=== PATIENT | female | born 1955 | race Caucasian/White ===

== ENCOUNTER → 2017-04-14 | Outpatient (CLI) | payer OTHER | LOC: CFH 08:10 | PROVIDERS: ATTEND Internal Medicine Gastroenterology | DX: K70.30 Alcoholic cirrhosis of liver without ascites (principal); K80.20 Calculus of gallbladder without cholecystitis without obstruction | CPT/HCPCS: 76705 ==

== ENCOUNTER → 2017-05-15 | Outpatient (CLI) | payer OTHER | END | disposition home or self-care (01) | LOC: CFH 11:30 | PROVIDERS: ATTEND Family Medicine | DX: Z12.31 Encounter for screening mammogram for malignant neoplasm of breast (principal); M25.512 Pain in left shoulder; M25.511 Pain in right shoulder; M25.562 Pain in left knee | CPT/HCPCS: 77063; 77067 ==

== ENCOUNTER → 2017-05-23 | Outpatient (CLI) | payer OTHER | END | disposition home or self-care (01) | LOC: CFH 06:55 | PROVIDERS: ATTEND Pain Medicine Interventional Pain Medicine | DX: M25.412 Effusion, left shoulder (principal); M75.102 Unspecified rotator cuff tear or rupture of left shoulder, not specified as traumatic; M15.9 Polyosteoarthritis, unspecified | CPT/HCPCS: 77077 ==

== ENCOUNTER 2017-09-26 05:31 | Day surgery (SDC) | payer OTHER ==
[~2017-09-26] VITALS: Ht 152.4 cm; Wt 62.3 kg
[~2017-09-26 05:31] MED LIST: CALC600T4 PO; CHOL2000 PO; LACT10SO28 PO; LACT1CAP35 PO; MULT-717 PO; RIFA550T4 PO
[2017-09-26] MEDS ORDERED: LACTATED RINGERS 1,000 ML IV SCH (06:18)
[2017-09-26] MEDS ORDERED: FENTANYL PF 100 MCG/2ML ONE ×2 (06:30→08:16)
[2017-09-26] MEDS ORDERED: METOPROLOL 1 MG/ML, 5ML ONE (06:30)
[2017-09-26] MEDS ORDERED: MIDAZOLAM 1 MG/ML, 2ML ONE (06:30)
[2017-09-26] MEDS ORDERED: GABAPENTIN 300 MG CAPSULE ONE (06:50)
[2017-09-26] MEDS ORDERED: GABAPENTIN 300 MG CAPSULE PO ONE (07:00)
[2017-09-26] MEDS ORDERED: CEFAZOLIN 1,000 MG ONE (07:24)
[2017-09-26] MEDS ORDERED: ONDANSETRON 2MG/ML, 2ML ONE (07:24)
[2017-09-26] MEDS ORDERED: PROPOFOL 10 MG/ML, 20ML ONE (07:24)
[2017-09-26] MEDS ORDERED: DEXAMETHASONE 4 MG/ML, 1ML ONE (07:24)
[2017-09-26] MEDS ORDERED: KETOROLAC 30 MG/1 ML ONE (07:44)
[2017-09-26] MEDS ORDERED: KETOROLAC 30 MG/1 ML IVPush PRN (08:00)
[2017-09-26] MEDS ORDERED: FENTANYL PF 100 MCG/2ML IV PRN (08:00)
[2017-09-26] MEDS ORDERED: HYDROmorphone 1 MG/ML, 1ML IV PRN (08:00)
[2017-09-26] MEDS ORDERED: OXYcodone 5 MG/5 ML ORAL.SOL UDC PO PRN (08:00)
[2017-09-26] MEDS ORDERED: ONDANSETRON 2MG/ML, 2ML IV PRN (08:00)
[2017-09-26] MEDS ORDERED: OXYcodone 5 MG/5 ML ORAL.SOL UDC ONE (08:16)
[2017-09-26] MEDS ORDERED: RIFAXIMIN 550 MG TABLET PO SCH (09:00)
[2017-09-26] MEDS ORDERED: LACTULOSE 10 GM/15 ML UDC PO SCH (09:00)
== END 2017-09-26 10:10 ==
LOC: OUT 05:31
PROVIDERS: ATTEND Orthopaedic Surgery
DX: S83.232A Complex tear of medial meniscus, current injury, left knee, initial encounter (principal); Z88.5 Allergy status to narcotic agent; Z87.891 Personal history of nicotine dependence; Z98.890 Other specified postprocedural states; Z79.899 Other long term (current) drug therapy; X58.XXXA Exposure to other specified factors, initial encounter; Y93.89 Activity, other specified; Y92.89 Other specified places as the place of occurrence of the external cause; Y99.8 Other external cause status
CPT/HCPCS: 29881; J0690; J1100; J1885; J2250; J2405; J2704; J3010; J7120

== ENCOUNTER 2017-11-02 09:10 | Day surgery (SDC) | payer OTHER ==
[~2017-11-02] VITALS: Ht 152.4 cm; Wt 61.3 kg
[~2017-11-02 09:10] MED LIST changes: +BUPIVACAINE/PF-EPI 0.5% 1:200K ONE; +LIDOCAINE 1%-EPI 1:100K, 30ML ONE
[2017-11-02 09:51] VITALS: BP 127/80
[2017-11-02] MEDS ORDERED: FENTANYL PF 100 MCG/2ML ONE (09:57)
[2017-11-02] MEDS ORDERED: MIDAZOLAM 1 MG/ML, 2ML ONE (09:57)
[2017-11-02] MEDS ORDERED: PLEASE ENTER HEIGHT AND WEIGHT MC SCH (10:00)
[2017-11-02] MEDS ORDERED: ONDANSETRON 2MG/ML, 2ML ONE (10:22)
[2017-11-02] MEDS ORDERED: NEOSTIGMINE 1 MG/ML, 10ML ONE (10:22)
[2017-11-02] MEDS ORDERED: GLYCOPYRROLATE 0.2MG/1ML, 5ML ONE (10:22)
[2017-11-02] MEDS ORDERED: CEFAZOLIN 1,000 MG ONE (10:51)
[2017-11-02] MEDS ORDERED: DEXAMETHASONE 4 MG/ML, 1ML ONE ×2 (10:51)
[2017-11-02] MEDS ORDERED: PROPOFOL 10 MG/ML, 20ML ONE (10:51)
[2017-11-02] MEDS ORDERED: ROCURONIUM 10MG/ML,5ML ONE (10:51)
[2017-11-02] MEDS ORDERED: HYDROmorphone 1 MG/ML, 1ML IV PRN (11:00)
[2017-11-02] MEDS ORDERED: hydrALAzine 20 MG/ML, 1ML IV PRN (11:00)
[2017-11-02] MEDS ORDERED: LACTATED RINGERS 1,000 ML IV SCH (11:00)
[2017-11-02] MEDS ORDERED: FENTANYL PF 100 MCG/2ML IV PRN (11:00)
[2017-11-02] MEDS ORDERED: ONDANSETRON 2MG/ML, 2ML IV PRN (11:00)
[2017-11-02] MEDS ORDERED: METOPROLOL 1 MG/ML, 5ML IV PRN (11:00)
[2017-11-02] MEDS ORDERED: EPHEDRINE 50 MG/ML, 1ML IVPush PRN (11:00)
[2017-11-02] MEDS ORDERED: LABETALOL 5MG/ML, 20ML IV PRN (11:00)
[2017-11-02] MEDS ORDERED: OXYcodone 5 MG/5 ML ORAL.SOL UDC PO PRN (11:00)
[2017-11-02] MEDS ORDERED: ALBUTEROL SULFATE 2.5 MG/3 ML NPPB PRN (11:00)
[2017-11-02] MEDS ORDERED: OXYcodone 5 MG/5 ML ORAL.SOL UDC ONE (12:22)
[2017-11-03] MEDS ORDERED: RIFAXIMIN 550 MG TABLET PO SCH (09:00)
== END 2017-11-02 17:10 | disposition home or self-care (01) ==
LOC: OUT 09:10
PROVIDERS: ATTEND Orthopaedic Surgery
DX: M75.112 Incomplete rotator cuff tear or rupture of left shoulder, not specified as traumatic (principal); M66.322 Spontaneous rupture of flexor tendons, left upper arm; M24.112 Other articular cartilage disorders, left shoulder; M65.812 Other synovitis and tenosynovitis, left shoulder; M94.212 Chondromalacia, left shoulder; M75.42 Impingement syndrome of left shoulder; M19.012 Primary osteoarthritis, left shoulder; Z88.5 Allergy status to narcotic agent; Z88.8 Allergy status to other drugs, medicaments and biological substances; Z87.891 Personal history of nicotine dependence; Z79.899 Other long term (current) drug therapy; Z98.890 Other specified postprocedural states
CPT/HCPCS: 29823; 29824; 29826; 29827; 29828; 64415; C1713; J0690; J1100; J2250; J2405; J2704; J2710; J3010; J3490

== ENCOUNTER → 2017-11-13 | Outpatient (CLI) | payer OTHER ==
[~2017-11-13] MED LIST changes: -BUPIVACAINE/PF-EPI 0.5% 1:200K ONE; -LIDOCAINE 1%-EPI 1:100K, 30ML ONE
== END | disposition home or self-care (01) ==
LOC: CFH 07:07
PROVIDERS: ATTEND Internal Medicine Gastroenterology
DX: K70.31 Alcoholic cirrhosis of liver with ascites (principal); R16.1 Splenomegaly, not elsewhere classified; K80.20 Calculus of gallbladder without cholecystitis without obstruction; I85.00 Esophageal varices without bleeding; K72.90 Hepatic failure, unspecified without coma; F10.10 Alcohol abuse, uncomplicated
CPT/HCPCS: 93975

== ENCOUNTER 2018-02-15 09:55 | Day surgery (SDC) | payer OTHER ==
[~2018-02-15] VITALS: Ht 154.9 cm; Wt 59.7 kg
[~2018-02-15 09:55] MED LIST changes: +FENTANYL PF 250 MCG/5ML ONE; +MIDAZOLAM 1 MG/ML, 2ML ONE
[2018-02-15] MEDS ORDERED: LIDOCAINE 1%-EPI 1:100K, 30ML ONE (09:57)
[2018-02-15] MEDS ORDERED: BUPIVACAINE/PF-EPI 0.5% 1:200K ONE (09:57)
[2018-02-15] MEDS ORDERED: NEOSPORIN OINT, 15GM ONE (09:58)
[2018-02-15] MEDS ORDERED: LACTATED RINGERS 1,000 ML IV SCH (10:04)
[2018-02-15 10:13] VITALS: BP 145/93
[2018-02-15] MEDS ORDERED: GABAPENTIN 300 MG CAPSULE PO ONE (10:30)
[2018-02-15] MEDS ORDERED: SCOPOLAMINE PATCH, 1.5MG PATCH.TD72 TD ONE (10:30)
[2018-02-15] MEDS ORDERED: FAMOTIDINE 20 MG TABLET PO ONE (10:30)
[2018-02-15] MEDS ORDERED: ACETAMINOPHEN 500 MG TABLET PO ONE (10:30)
[2018-02-15] MEDS ORDERED: CEFAZOLIN 1,000 MG ONE ×2 (11:46)
[2018-02-15] MEDS ORDERED: SUCCINYLCHOLINE 20 MG/ML, 10ML ONE (11:46)
[2018-02-15] MEDS ORDERED: PHENYLEPHRINE 10 MG/ML ONE (11:46)
[2018-02-15] MEDS ORDERED: DEXAMETHASONE 4 MG/ML, 5ML ONE (11:46)
[2018-02-15] MEDS ORDERED: ROCURONIUM 10 MG/ML,10ML ONE (11:46)
[2018-02-15] MEDS ORDERED: ONDANSETRON 2MG/ML, 2ML ONE (11:46)
[2018-02-15] MEDS ORDERED: PROPOFOL 10 MG/ML, 20ML ONE (11:46)
[2018-02-15] MEDS ORDERED: OXYcodone 5 MG/5 ML ORAL.SOL UDC PO PRN (12:00)
[2018-02-15] MEDS ORDERED: HYDROmorphone 2 MG/ML, 1ML IVPush PRN (12:00)
[2018-02-15] MEDS ORDERED: ONDANSETRON 2MG/ML, 2ML IV PRN (12:00)
[2018-02-15] MEDS ORDERED: FENTANYL PF 100 MCG/2ML IV PRN (12:00)
[2018-02-15] MEDS ORDERED: ONDANSETRON ODT 8 MG PO PRN (12:00)
[2018-02-15] MEDS ORDERED: CALCIUM/VITAMIN D3 250-125 TABLET PO SCH (12:30)
[2018-02-15] MEDS ORDERED: LACTULOSE 10 GM/15 ML UDC PO PRN (12:30)
[2018-02-15] MEDS ORDERED: EPINEPHRINE 1 MG/ML, 30ML IVPB ONE (12:32)
[2018-02-15] MEDS ORDERED: OXYcodone 5 MG/5 ML ORAL.SOL UDC ONE (13:46)
[2018-02-15] MEDS ORDERED: FENTANYL PF 100 MCG/2ML ONE (13:46)
[2018-02-16] MEDS ORDERED: MULTIVITAMINS/MINERALS TABLET PO SCH (09:00)
[2018-02-16] MEDS ORDERED: CHOLECALCIFEROL 1,000 UNIT TABLET PO SCH (09:00)
[2018-02-16] MEDS ORDERED: LACTOBACILLUS 1GM/ PACKET PO SCH (09:00)
== END 2018-02-15 16:40 | disposition home or self-care (01) ==
LOC: OUT 09:55
PROVIDERS: ATTEND Orthopaedic Surgery
DX: S43.431A Superior glenoid labrum lesion of right shoulder, initial encounter (principal); M75.111 Incomplete rotator cuff tear or rupture of right shoulder, not specified as traumatic; M75.41 Impingement syndrome of right shoulder; M19.011 Primary osteoarthritis, right shoulder; M65.811 Other synovitis and tenosynovitis, right shoulder; M66.361 Spontaneous rupture of flexor tendons, right lower leg; X58.XXXA Exposure to other specified factors, initial encounter; Y93.89 Activity, other specified; Y92.89 Other specified places as the place of occurrence of the external cause; Y99.8 Other external cause status; Z88.5 Allergy status to narcotic agent; Z79.899 Other long term (current) drug therapy; Z87.891 Personal history of nicotine dependence
CPT/HCPCS: 29823; 29824; 29826; 29827; 29828; C1713; J0171; J0330; J0690; J1100; J2250; J2370; J2405; J2704; J3010; J3490; J7120

== ENCOUNTER → 2018-05-14 | Outpatient (CLI) | payer OTHER ==
[~2018-05-14] MED LIST changes: -FENTANYL PF 250 MCG/5ML ONE; -MIDAZOLAM 1 MG/ML, 2ML ONE
== END | disposition home or self-care (01) ==
LOC: CFH 07:10
PROVIDERS: ATTEND Internal Medicine Gastroenterology
DX: K70.30 Alcoholic cirrhosis of liver without ascites (principal); K80.50 Calculus of bile duct without cholangitis or cholecystitis without obstruction; Z96.89 Presence of other specified functional implants
CPT/HCPCS: 93975

== ENCOUNTER 2019-08-06 08:56 | Outpatient (CLI) | payer MEDICARE | END 2019-08-06 23:59 | disposition home or self-care (01) | LOC: CFH 08:56 | PROVIDERS: ATTEND Family Medicine | DX: Z12.31 Encounter for screening mammogram for malignant neoplasm of breast (principal) | CPT/HCPCS: 77063; 77067 ==

== ENCOUNTER → 2020-04-14 | Outpatient (CLI) | payer MEDICARE ==
[~2020-04-14] MED LIST changes: -CALC600T4 PO; +CALC600T60 PO
== END | disposition home or self-care (01) ==
LOC: RAD 07:31
PROVIDERS: ATTEND Internal Medicine Gastroenterology
DX: K80.20 Calculus of gallbladder without cholecystitis without obstruction (principal); R16.1 Splenomegaly, not elsewhere classified; R93.89 Abnormal findings on diagnostic imaging of other specified body structures; R18.8 Other ascites; K70.30 Alcoholic cirrhosis of liver without ascites; Z86.010 Personal history of colon polyps
CPT/HCPCS: 93975

== ENCOUNTER 2020-08-01 19:38 | Emergency (ER) | payer MEDICARE ==
[~2020-08-01] VITALS: Ht 152.4 cm; Wt 60.5 kg
--- NOTE | 2020-08-01 20:16 | NUR ---
PT TO CT
[2020-08-01] MEDS ORDERED: ONDANSETRON ODT 4 MG ONE (20:23)
[2020-08-01] MEDS ORDERED: DIPHENHYDRAMINE 25 MG CAPSULE ONE (20:23)
[2020-08-01] MEDS ORDERED: DIPHENHYDRAMINE 25 MG CAPSULE PO ONE (20:30)
[2020-08-01] MEDS ORDERED: ONDANSETRON ODT 4 MG PO ONE (20:30)
--- NOTE | 2020-08-01 20:36 | NUR ---
TASK RN: PT MEDICATED PER MAY 01 RIGHTS VERIFIED
[2020-08-01 21:16] VITALS: BP 120/84
--- NOTE | 2020-08-01 21:22 | NUR ---
ASSOCIATE ACCOUNT DIRECTOR: CALLED CT REQUESTING CT READ, TECH STATES HE WILL CHECK ON IT
== END 2020-08-01 22:10 | disposition home or self-care (01) ==
LOC: ED 21:55
DX: S06.0X0A Concussion without loss of consciousness, initial encounter (principal); S50.811A Abrasion of right forearm, initial encounter; W18.30XA Fall on same level, unspecified, initial encounter; Y93.89 Activity, other specified; Y92.89 Other specified places as the place of occurrence of the external cause; Y99.8 Other external cause status
CPT/HCPCS: 70100; 70450; 99284; Q0162; Q0163

== ENCOUNTER → 2020-10-13 | Outpatient (CLI) | payer MEDICARE | END | disposition home or self-care (01) | LOC: RAD 10:40 | PROVIDERS: ATTEND Internal Medicine Gastroenterology | DX: K70.30 Alcoholic cirrhosis of liver without ascites (principal); K43.9 Ventral hernia without obstruction or gangrene; R18.8 Other ascites; D12.2 Benign neoplasm of ascending colon; R16.1 Splenomegaly, not elsewhere classified; K80.20 Calculus of gallbladder without cholecystitis without obstruction; Z95.828 Presence of other vascular implants and grafts | CPT/HCPCS: 76705 ==